=== PATIENT | male | born 2000 | race Caucasian/White ===

== ENCOUNTER 2020-10-13 12:05 | Emergency (ER) | payer OTHER ==
[~2020-10-13] VITALS: Ht 180.3 cm; Wt 97.7 kg
[2020-10-13 12:15] VITALS: BP 138/88
[2020-10-13] MEDS ORDERED: IBUP200C25 PO (12:17)
[2020-10-13] MEDS ORDERED: BENA25CA4 PO (12:17)
[2020-10-13] MEDS ORDERED: LIDOCAINE 4% CREAM 5GM (LMX4) TOP ONE (14:45)
[2020-10-13] MEDS ORDERED: DOXYCYCLINE HYCLATE 100MG TABLET PO ONE (14:45)
[2020-10-13] MEDS ORDERED: IBUPROFEN 600MG TAB PO ONE (14:45)
[2020-10-13] MEDS ORDERED: HYDR-3713 PO (15:39)
[2020-10-13] MEDS ORDERED: DOXY1CAP62 PO (15:39)
== END 2020-10-13 15:59 | disposition home or self-care (01) ==
LOC: M ED 12:05
DX: L02.213 Cutaneous abscess of chest wall (principal); L02.414 Cutaneous abscess of left upper limb; Z77.098 Contact with and (suspected) exposure to other hazardous, chiefly nonmedicinal, chemicals